=== PATIENT | female | born 1955 | race American Indian/Alaskan Native ===

== ENCOUNTER 2019-07-15 06:03 | Emergency (ER) | payer OTHER ==
--- NOTE | 2019-07-15 07:21 | XRay Report ---
Cervical spine 5 views Indication: neck pain s/p injury at job, stumbled over shoes Findings: There is no fracture, subluxation, or other acute radiographic abnormality of the cervical spine. The re is discogenic degenerative change at C4-5 with mild disc space narrowing and osteophyte formation. Prevertebral soft tissues are unremarkable. Signer Name: César Thompson MD Signed: 07/15/2019 7:17 AM Workstation Name: [id number]
--- NOTE | 2019-07-15 08:36 | Emergency Department Report ---
ED Fall HPI - General Chief Complaint: Neck Pain/Injury Stated Complaint: NECK PAIN Time Seen by Provider: 07/15/19 07:34 Source: patient Mode of arrival: Ambulatory - History of Present Illness Initial Comments: 64-year-old -Citizen Of [place] female patient with history of hypertension presents with complaints of right-sided neck pain x today. Patient states that she had a fall at work on Friday that resulted in injury to her right hip and right arm and shoulder; she denies head trauma or neck pain at the time. Patient states she was evaluated on Friday at [facility] and had x-rays of her shoulder and hip performed-negative for fracture per patient. Patient states she is currently having pain in her right shoulder that radiates into her right neck. She rates her pain as a 8/10 in severity and describes it as a tightness and stiffness. She denies any fever, headache, numbness/tingling/weakness in her limbs, or difficulty with ambulation. She states her pain has improved with ibuprofen 800mg. -: Sudden - Related Data Previous Rx's Medication Instructions Recorded Last Taken Type Methocarbamol [Robaxin] 1,000 mg PO TID PRN #21 tablet 07/15/19 Unknown Rx predniSONE [Deltasone] 10 mg PO TID PRN #9 tab 07/15/19 Unknown Rx Allergies Allergy/AdvReac Type Severity Reaction Status Date / Time No Known Allergies Allergy Unverified 07/15/19 06:12 ED Review of Systems ROS: Stated complaint: NECK PAIN Other details as noted in HPI Constitutional: denies: chills, diaphoresis, fever, malaise, weakness ENT: denies: throat pain Endocrine: denies: excessive sweating Musculoskeletal: arthralgia. denies: joint swelling Skin: denies: rash, lesions Neurological: denies: headache, weakness, numbness, paresthesias, abnormal gait ED Past Medical Hx - Past Medical History Previous Medical History?: Yes Additional medical history: labial cancer, 2010 - Surgical History Past Surgical History?: Yes Additional Surgical History: labial removal, 2010 - Social History Smoking Status: Never Smoker Substance Use Type: None - Medications Home Medications: Home Medications Medication Instructions Recorded Confirmed Last Taken Type Methocarbamol [Robaxin] 1,000 mg PO TID PRN #21 tablet 07/15/19 Unknown Rx predniSONE [Deltasone] 10 mg PO TID PRN #9 tab 07/15/19 Unknown Rx ED Physical Exam - General Limitations: No Limitations General appearance: alert, in no apparent distress - Head Head exam: Present: atraumatic, normocephalic - Eye Eye exam: Present: normal appearance - ENT ENT exam: Present: mucous membranes moist - Neck Neck exam: Present: tenderness (Right trapezius muscle tenderness to palpation, no vertebral tenderness noted), full ROM. Absent: meningismus - Respiratory Respiratory exam: Present: normal lung sounds bilaterally. Absent: respiratory distress - Cardiovascular Cardiovascular Exam: Present: regular rate - Extremities Exam Extremities exam: Present: normal inspection - Expanded Upper Extremity Exam Right Shoulder Exam: Present: full ROM. Absent: tenderness, swelling, abrasion, ecchymosis, deformity Upper Arm exam: Present: normal inspection Neurosensory exam: Present: radial nerve intact, ulnar nerve intact, median nerve intact Vascular: Present: normal capillary refill, radial pulse - Neurological Exam Neurological exam: Present: alert, oriented X3, normal gait. Absent: motor sensory deficit - Expanded Neurological Exam Expanded Motor strength exam: RUE: 5, LUE: 5 - Psychiatric Psychiatric exam: Present: normal affect, normal mood - Skin Skin exam: Present: warm, dry, intact, normal color. Absent: rash ED Course Vital Signs 07/15/19 07:57 Respiratory 18 Rate ED Medical Decision Making - Medical Decision Making Patient here with complaints of right neck/shoulder pain after fall injury on Friday. No vertebral tenderness noted on exam. Patient denies any red flag symptoms or history. Patient has full range of motion of the neck and right shoulder. Symptoms appear to be consistent with trapezius muscle strain. Conservative treatment recommended with icing, muscle relaxers, and prednisone. Patient states she was using ibuprofen 800 every 4 hours, will avoid NSAIDs for now. Recommend follow-up with orthopedics as needed. Strict return precautions were discussed in great detail with patient who verbalizes understanding. Critical care attestation.: If time is entered above; I have spent that time in minutes in the direct care of this critically ill patient, excluding procedure time. ED Disposition Clinical Impression: Neck muscle spasm Disposition: DC-01 TO HOME OR SELFCARE Is pt being admited?: No Condition: Stable Instructions: Cervical Spine Strain (ED), Muscle Spasm (ED) Prescriptions: predniSONE [Deltasone] 10 mg PO TID PRN #9 tab PRN Reason: pain Methocarbamol [Robaxin] 1,000 mg PO TID PRN #21 tablet PRN Reason: Muscle Spasm/tightness Referrals: BIJAL DAVIS MD [Staff Physician] - 3-5 Days Forms: Work/School Release Form(ED)
== END 2019-07-15 08:43 | disposition home or self-care (01) ==
LOC: ED 06:03
DX: M62.838 Other muscle spasm (principal); I10 Essential (primary) hypertension; Z85.44 Personal history of malignant neoplasm of other female genital organs; Z98.890 Other specified postprocedural states; Z79.899 Other long term (current) drug therapy
CPT/HCPCS: 72040

== ENCOUNTER 2020-03-15 10:45 | Emergency (ER) | payer OTHER ==
[2020-03-15 11:07] VITALS: BP 164/88
[2020-03-15 14:34] LABS: Basophils % (Auto) 0.2 % (0.0-1.8); Hematocrit 40.1 % (30.3-42.9); Hemoglobin 13.7 gm/dl (10.1-14.3); Lymphocytes % (Auto) 16.9 % (13.4-35.0); Mean Corpuscular HGB Conc 34 % (30-34); Mean Corpuscular Volume 93 fl (79-97); Monocytes # (Auto) 0.3 K/mm3 (0.0-0.8); Monocytes % (Auto) 4.3 % (0.0-7.3); Platelet Count 230 K/mm3 (140-440); Red Blood Count 4.31 M/mm3 (3.65-5.03); Red Cell Distribution Width 14.3 % (13.2-15.2)
[2020-03-15 14:50] LABS: Alanine Aminotransferase 10 units/L (7-56); Albumin 4.5 g/dL (3.9-5); Blood Urea Nitrogen 13 mg/dL (7-17); Calcium 9.9 mg/dL (8.4-10.2); Hemolysis Index 6
[2020-03-15 14:54] LABS: BUN/Creatinine Ratio 22
[2020-03-15] MEDS ORDERED: POTASSIUM CHLORIDE ER 20 MEQ TAB PO ONE (15:18)
--- NOTE | 2020-03-15 16:00 | Emergency Department Report ---
ED General Adult HPI - General Chief complaint: Abdominal Pain Stated complaint: ABD PAIN Time Seen by Provider: 03/15/20 15:17 Source: patient Mode of arrival: Wheelchair Limitations: No Limitations - History of Present Illness Initial comments: The patient was evaluated in the emergency department for symptoms described in the history of present illness. He/she was evaluated in the context of the global COVID-19 pandemic, which necessitated consideration that the patient might be at risk for infection with the virus that causes COVID-19. Institu tional protocols and algorithms that pertain to the evaluation of patients at risk for COVID-19 are in a state of rapid change based on information released by regulatory bodies including the CDC and federal and state organizations. These policies and algorithms were followed during the patient's care in the emergency department. Please note that these policies, procedures and recommendations changed on a rapid basis. 65-year-old -[place] female presents to the emergency room for int ermittent abdominal pains x3 days. Patient stated that she had vomited this morning about 2 AM while she was drinking water yogurt and cadence tea. Patient states that something is biting in her stomach. Patient reports lying makes it better and getting up walking makes it worse. Patient admits to a decrease in appetite. She reports short of breath with exertion. She admits to sweating and chills but no fever. She reports no taste or smell. She states that she has went back to work after 7 months on Friday and she feels that she may been contracted COVID-19. Patient reports a past medical history of hypertension and labia cancer. Patient had an appointment today with her primary care provider at 2:00 but decided to come here to be evaluated. Onset/Timin -: days(s) Location: abdomen Severity scale (0 -10): 8 Quality: sharp Consistency: intermittent Improves with: rest Worsens with: movement Associated Symptoms: diaphoresis, loss of appetite (Today), nausea/vomiting (2 AM), shortness of breath (With exertion). denies: fever/chills - Related Data Previous Rx's Medication Instructions Recorded Last Taken Type Methocarbamol [Robaxin] 1,000 mg PO TID PRN #21 tablet 07/15/19 Unknown Rx predniSONE [Deltasone] 10 mg PO TID PRN #9 tab 07/15/19 Unknown Rx Nitrofurantoin [place]/M-Cryst 100 mg PO Q12HR 10 Days #20 capsule 03/15/20 Unknown Rx [Macrobid CAP] Allergies Allergy/AdvReac Type Severity Reaction Status Date / Time No Known Allergies Allergy Unverified 07/15/19 06:12 ED Review of Systems ROS: Stated complaint: ABD PAIN Other details as noted in HPI Comment: All other systems reviewed and negative Gastrointestinal: denies: diarrhea, constipation Genitourinary: denies: frequency, hematuria ED Past Medical Hx - Past Medical History Previous Medical History?: Yes Hx Hypertension: Yes Additional medical history: labial cancer, 2010 - Surgical History Past Surgical History?: Yes Additional Surgical History: labial removal, 2010 - Social History Smoking Status: Never Smoker Substance Use Type: None - Medications Home Medications: Home Medications Medication Instructions Recorded Confirmed Last Taken Type Methocarbamol [Robaxin] 1,000 mg PO TID PRN #21 tablet 07/15/19 Unknown Rx predniSONE [Deltasone] 10 mg PO TID PRN #9 tab 07/15/19 Unknown Rx Nitrofurantoin [place]/M-Cryst 100 mg PO Q12HR 10 Days #20 capsule 03/15/20 Un known Rx [Macrobid CAP] ED Physical Exam - General Limitations: No Limitations General appearance: alert, in no apparent distress - Head Head exam: Present: atraumatic, normocephalic - Eye Eye exam: Present: normal appearance - ENT ENT exam: Present: mucous membranes moist - Neck Neck exam: Present: normal inspection - Respiratory Respiratory exam: Present: normal lung sounds bilaterally. Absent: respiratory distress - Cardiovascular Cardiovascular Exam: Present: regular rate, normal rhythm. Absent: systolic murmur, diastolic murmur, rubs, gallop - GI/Abdominal GI/Abdominal exam: Present: soft, normal bowel sounds. Absent: distended, tenderness, guarding, rebound - Extremities Exam Extremities exam: Present: normal inspection, full ROM - Back Exam Back exam: Present: normal inspection, full ROM - Neurological Exam Neurological exam: Present: alert, oriented X3, normal gait - Psychiatric Psychiatric exam: Present: normal affect, normal mood - Skin Skin exam: Present: warm, dry, intact, normal color. Absent: rash ED Course Vital Signs 03/15/20 11:07 Temperature 98.6 F Pulse Rate 77 Respiratory 18 Rate Blood Pressure 164/88 [Right] O2 Sat by Pulse 98 Oximetry ED Medical Decision Making - Lab Data Result diagrams: 03/15/20 13:37 03/15/20 13:37 Laboratory Tests 03/15/20 03/15/20 03/15/20 13:37 13:37 15:58 WBC 6.0 RBC 4.31 Hgb 13.7 Hct 40.1 MCV 93 MCH 32 MCHC 34 RDW 14.3 Plt Count 230 Lymph % (Auto) 16.9 [place] % (Auto) 4.3 Eos % (Auto) 0.0 Baso % (Auto) 0.2 Lymph # (Auto) 1.0 L [place] # (Auto) 0.3 Eos # (Auto) 0.0 Baso # (Auto) 0.0 Seg Neutrophils % 78.6 H Seg Neutrophils # 4.8 Sodium 139 Potassium 3.0 L Chloride 96.9 L Carbon Dioxide 27 Anion Gap 18 BUN 13 Creatinine 0.6 Estimated GFR > 60 BUN/Creatinine Ratio 22 Glucose 117 H Calcium 9.9 Total Bilirubin 0.90 AST 17 ALT 10 Alkaline Phosphatase 79 Total Protein 7.9 Albumin 4.5 Albumin/Globulin Ratio 1.3 Lipase 18 Urine Color Yellow Urine Turbidity Clear Urine pH 5.0 Ur Specific [place] 1.023 Urine Protein 100 mg/dl Urine Glucose (UA) Neg Urine Ketones 80 Urine Blood Neg Urine Nitrite Neg Urine Bilirubin Neg Urine Urobilinogen < 2.0 Ur Leukocyte Esterase Lg Urine WBC (Auto) 13.0 H Urine RBC (Auto) 12.0 U Epithel Cells (Auto) 2.0 Urine Bacteria (Auto) 1+ Urine Mucus 2+ - Medical Decision Making 65-year-old -[place] female presents to the emergency room for inte rmittent abdominal pains x3 days. Patient stated that she had vomited this morning about 2 AM while she was drinking water yogurt and cadence tea. Patient states that something is biting in her stomach. Patient reports lying makes it better and getting up walking makes it worse. Patient admits to a decrease in appetite. She reports short of breath with exertion. She admits to sweating and chills but no fever. She reports no taste or smell. She states that she has went back to work after 7 months on Friday and she feels that she may been contracted COVID-19. Patient reports a past medical history of hypertension and labia cancer. Patient had an appointment today with her primary care provider at 2:00 but decided to come here to be evaluated. Patient's labs are unremarkable patient vital signs are within normal limits. I informed patient that we do not check for Covid that she can follow-up with one of the community resources to get Covid testing. Patient has no labored breat fredo able to speak in complete sentences no coughing. Critical care attestation.: If time is entered above; I have spent that time in minutes in the direct care of this critically ill patient, excluding procedure time. ED Disposition Clinical Impression: UTI (urinary tract infection) Qualifiers: Urinary tract infection type: site unspecified Hematuria presence: without hematuria Qualified Code(s): N39.0 - Urinary tract infection, site not specified Disposition: TO HOME OR SELFCARE Is pt being admited?: No Does the pt Need Aspirin: No Condition: Stable Instructions: Abdominal Pain (ED), Urinary Tract Infection in Women (ED) Additional Instructions: Urinalysis shows that you have a urinary tract infection. I would like for you to complete your antibiotics as prescribed. Tylenol or ibuprofen as needed for pain management. And you need to increase your water intake to about 8 L daily. Prescriptions: Nitrofurantoin [place]/M-Cryst [Macrobid CAP] 100 mg PO Q12HR 10 Days #20 capsule Referrals: PRIMARY CAREMD [Primary Care Provider] - 3-5 Days MARLY JORDAN MD [Referring] - 3-5 Days Forms: Work/School Release Form(ED)
[2020-03-15 16:12] LABS: Bacteria,Urine 1+ /HPF (Negative); Bilirubin,Urine NEG (Negative); Blood,Urine NEG (Negative); Color,Urine Yellow (Yellow); Mucus,Urine 2+ /HPF; Urobilinogen,Urine < 2.0 mg/dL (<2.0)
== END 2020-03-15 17:14 | disposition home or self-care (01) ==
LOC: ED 10:45
DX: N39.0 Urinary tract infection, site not specified (principal); I10 Essential (primary) hypertension; Z98.890 Other specified postprocedural states; Z79.899 Other long term (current) drug therapy
CPT/HCPCS: 36415; 80053; 81001; 83690; 85025; 87086

== ENCOUNTER 2020-03-17 14:47 | Observation (INO) | payer OTHER ==
--- NOTE | 2020-03-17 15:05 | Emergency Department Report ---
ED Chest Pain HPI - General Stated Complaint: CHEST PAIN Time Seen by Provider: 03/17/20 14:57 - History of Present Illness Initial Comments: This is a 65-year-old female presents to the emergency department via EMS from home with complaint of chest pain, palpitations and shortness of breath. Patient says that she began having midsternal chest pain few hours prior to presentation. At that time there were no aggravating or alleviating factors. She was given a sublingual nitroglycerin by EMS and suddenly went unresponsive. The patient is currently awake and alert and said "I thought I just went to sleep." Upon waking or becoming responsive, the patient no longer has any chest pain but still continues to have palpitations and shortness of breath. She denies any fever, nausea, vomiting, back pain. Patient presented very diaphoretic. She has a past medical history of hypertension for which she takes amlodipine and hydrochlorothiazide. She was seen here 2 days ago for a urinary tract infection for which she is currently being treated with nitrofurantoin. She denies any tobacco or illicit drug use. No family history of early cardiac disease or events. No recent travel or sick contacts at home. - Related Data Previous Rx's Medication Instructions Recorded Last Taken Type Methocarbamol [Robaxin] 1,000 mg PO TID PRN #21 tablet 07/15/19 Unknown Rx predniSONE [Deltasone] 10 mg PO TID PRN #9 tab 07/15/19 Unknown Rx Nitrofurantoin [place]/M-Cryst 100 mg PO Q12HR 10 Days #20 capsule 03/15/20 Unknown Rx [Macrobid CAP] Allergies Allergy/AdvReac Type Severity Reaction Status Date / Time No Known Allergies Allergy Unverified 07/15/19 06:12 Heart Score - HEART Score History: Slightly suspicious EKG: Non-specific Age: 45-65 Risk factors: 1-2 risk factors Troponin: < normal limit HEART Score: 3 - Critical Actions Critical Actions: 0-3 pts:0.9-1.7%risk of adverse cardiac event.Candidate for discharge ED Review of Systems ROS: Stated complaint: CHEST PAIN Other details as noted in HPI Comment: All other systems reviewed and negative Constitutional: diaphoresis. denies: fever Eyes: denies: eye pain, vision change ENT: denies: ear pain, throat pain Respiratory: shortness of breath. denies: cough Cardiovascular: chest pain, palpitations. denies: edema Gastrointestinal: denies: abdominal pain, vomiting Genitourinary: denies: dysuria, discharge Musculoskeletal: denies: back pain, arthralgia Skin: denies: rash, lesions Neurological: denies: headache, weakness ED Past Medical Hx - Past Medical History Hx Hypertension: Yes Additional medical history: labial cancer, 2010 - Surgical History Additional Surgical History: labial removal, 2010 - Social History Smoking Status: Never Smoker Substance Use Type: None - Medications Home Medications: Home Medications Medication Instructions Recorded Confirmed Last Taken Type Methocarbamol [Robaxin] 1,000 mg PO TID PRN #21 tablet 07/15/19 Unknown Rx predniSONE [Deltasone] 10 mg PO TID PRN #9 tab 07/15/19 Unknown Rx Nitrofurantoin [place]/M-Cryst 100 mg PO Q12HR 10 Days #20 capsule 03/15/20 Unknown Rx [Macrobid CAP] ED Physical Exam - Other Other exam information: GENERAL: The patient is well-developed well-nourished. HENT: Normocephalic. Atraumatic. Patient has moist mucous membranes. EYES: Extraocular motions are intact. NECK: Supple. Trachea is midline. CHEST/LUNGS: Clear to auscultation. There is no respiratory distress noted. HEART/CARDIOVASCULAR: Regular. There is no tachycardia. ABDOMEN: Abdomen is soft, nontender. Patient has normal bowel sounds. SKIN: Skin is warm. Patient is diaphoretic. NEURO: The patient is awake, alert, and oriented. The patient is cooperative. The patient has no focal neurologic deficits. Normal speech. MUSCULOSKELETAL: There is no tenderness or deformity. There is no limitation range of motion. ED Course Vital Signs 03/17/20 03/17/20 15:03 17:03 Temperature 97.6 F Pulse Rate 76 Respiratory 18 18 Rate Blood Pressure 114/65 Blood Pressure 114/65 [Right] O2 Sat by Pulse 100 100 Oximetry - Reevaluation(s) Reevaluation #1: 03/17/20 17:40 Lab Results 03/17/20 03/17/20 03/17/20 Range/Units 15:35 15:35 15:35 WBC 8.0 (4.5-11.0) K/mm3 RBC 4.40 (3.65-5.03) M/mm3 Hgb 14.0 (10.1-14.3) gm/dl Hct 39.6 (30.3-42.9) % MCV 90 (79-97) fl MCH 32 (28-32) pg MCHC 35 H (30-34) % RDW 13.7 (13.2-15.2) % Plt Count 246 (140-440) K/mm3 Lymph % (Auto) 24.0 (13.4-35.0) % [place] % (Auto) 10.3 H (0.0-7.3) % Eos % (Auto) 0.1 (0.0-4.3) % Baso % (Auto) 0.2 (0.0-1.8) % Lymph # (Auto) 1.9 (1.2-5.4) K/mm3 [place] # (Auto) 0.8 (0.0-0.8) K/mm3 Eos # (Auto) 0.0 (0.0-0.4) K/mm3 Baso # (Auto) 0.0 (0.0-0.1) K/mm3 Seg Neutrophils % 65.4 (40.0-70.0) % Seg Neutrophils # 5.2 (1.8-7.7) K/mm3 D-Dimer 135.00 (0-234) ng/mlDDU Sodium 131 L D (137-145) mmol/L Potassium 2.4 L* (3.6-5.0) mmol/L Chloride 89.8 L (98-107) mmol/L Carbon Dioxide 21 L (22-30) mmol/L Anion Gap 23 mmol/L BUN 14 (7-17) mg/dL Creatinine 0.7 (0.6-1.2) mg/dL Estimated GFR > 60 ml/min BUN/Creatinine Ratio 20 % Glucose 141 H (65-100) mg/dL Calcium 9.6 (8.4-10.2) mg/dL Magnesium (1.7-2.3) mg/dL Total Bilirubin 0.80 (0.1-1.2) mg/dL AST 17 (5-40) units/L ALT 10 (7-56) units/L Alkaline Phosphatase 74 (35-129) units/L Troponin T < 0.010 (0.00-0.029) ng/mL Total Protein 7.4 (6.3-8.2) g/dL Albumin 4.3 (3.9-5) g/dL Albumin/Globulin Ratio 1.4 % TSH (0.270-4.200) mlU/mL 03/17/20 03/17/20 Range/Units 15:35 15:35 WBC (4.5-11.0) K/mm3 RBC (3.65-5.03) M/mm3 Hgb (10.1-14.3) gm/dl Hct (30.3-42.9) % MCV (79-97) fl MCH (28-32) pg MCHC (30-34) % RDW (13.2-15.2) % Plt Count (140-440) K/mm3 Lymph % (Auto) (13.4-35.0) % [place] % (Auto) (0.0-7.3) % Eos % (Auto) (0.0-4.3) % Baso % (Auto) (0.0-1.8) % Lymph # (Auto) (1.2-5.4) K/mm3 [place] # (Auto) (0.0-0.8) K/mm3 Eos # (Auto) (0.0-0.4) K/mm3 Baso # (Auto) (0.0-0.1) K/mm3 Seg Neutrophils % (40.0-70.0) % Seg Neutrophils # (1.8-7.7) K/mm3 D-Dimer (0-234) ng/mlDDU Sodium (137-145) mmol/L Potassium (3.6-5.0) mmol/L Chloride (98-107) mmol/L Carbon Dioxide (22-30) mmol/L Anion Gap mmol/L BUN (7-17) mg/dL Creatinine (0.6-1.2) mg/dL Estimated GFR ml/min BUN/Creatinine Ratio % Glucose (65-100) mg/dL Calcium (8.4-10.2) mg/dL Magnesium 2.10 (1.7-2.3) mg/dL Total Bilirubin (0.1-1.2) mg/dL AST (5-40) units/L ALT (7-56) units/L Alkaline Phosphatase (35-129) units/L Troponin T (0.00-0.029) ng/mL Total Protein (6.3-8.2) g/dL Albumin (3.9-5) g/dL Albumin/Globulin Ratio % TSH 2.620 (0.270-4.200) mlU/mL PATTI score - Patti Score Age > 65: (0) No Aspirin use within the Past 7 Days: (0) No 3 or more CAD Risk Factors: (0) No 2 or more Angina events in past 24 hrs: (1) Yes Known CAD with more than 50% Stenosis: (0) No Elevated Cardiac Markers: (0) No ST Deviation Greater than 0.5mm: (0) No PATTI Score: 1 ED Medical Decision Making - Lab Data Result diagrams: 03/17/20 15:35 03/17/20 15:35 - EKG Data -: EKG Interpreted by Me EKG shows normal: sinus rhythm, axis, intervals (Prolonged QTC), QRS complexes (LVH), ST-T waves Rate: normal - EKG Data When compared to previous EKG there are: previous EKG unavailable Interpretation: other (Sinus rhythm, rate of 78 bpm, normal axis, prolonged QTC, LVH) - Radiology Data Radiology results: image reviewed interpreted by me: Chest x-ray does not show any acute process. There are no pleural effusions, obvious pneumonia and there is no pneumothorax. No significant cardiomegaly. - Medical Decision Making This patient presents to the emergency department with a complaint of chest pain, palpitations and shortness of breath. Patient presents diaphoretic but otherwise is awake, alert, oriented. At the time of my examination the chest pain has resolved with the patient still complains of the palpitations and shortness of breath. EKG does not have any morphology consistent with ST elevation myocardial infarction. Chest x-ray does not show any acute process. Patient's labs shows a significant hypokalemia with a potassium of 2.4. She has been started on both oral and IV potassium replacement. First troponin negative. Negative D-dimer. Patient will be admitted to the hospital for fu rther evaluation and treatment and accepted for admission by the hospitalist, Dr. Leahy. Critical Care Time: Yes Critical care time in (mins) excluding proc time.: 35 Critical care attestation.: If time is entered above; I have spent that time in minutes in the direct care of this critically ill patient, excluding procedure time. Critical care time was spent on this patient in doing her initial evaluation, multiple reevaluations, ordering and interpretation of labs and imaging, IV and p.o. potassium replacement, discussion with the hospitalist service, multiple discussions with the patient. Critical Care Time: 35 minutes ED Disposition Clinical Impression: Acute chest pain, Hypokalemia, Palpitations Disposition: OP ADMIT IP TO THIS HOSP Is pt being admited?: Yes Condition: Serious
[2020-03-17 15:59] LABS: Basophils % (Auto) 0.2 % (0.0-1.8); Eosinophils % (Auto) 0.1 % (0.0-4.3); Hematocrit 39.6 % (30.3-42.9); Lymphocytes # (Auto) 1.9 K/mm3 (1.2-5.4); Mean Corpuscular HGB Conc 35 % (30-34); Mean Corpuscular Volume 90 fl (79-97); Monocytes # (Auto) 0.8 K/mm3 (0.0-0.8); Monocytes % (Auto) 10.3 % (0.0-7.3); Platelet Count 246 K/mm3 (140-440); Red Cell Distribution Width 13.7 % (13.2-15.2)
[2020-03-17 16:18] LABS: Alanine Aminotransferase 10 units/L (7-56); Albumin 4.3 g/dL (3.9-5); Blood Urea Nitrogen 14 mg/dL (7-17); Hemolysis Index 8
[2020-03-17 16:20] LABS: BUN/Creatinine Ratio 20
[2020-03-17 16:27] LABS: Calcium 9.6 mg/dL (8.4-10.2)
[2020-03-17] MEDS ORDERED: POTASSIUM CHLORIDE ER 20 MEQ TAB PO ONE (16:27)
--- NOTE | 2020-03-17 16:51 | XRay Report ---
CHEST 1 VIEW INDICATION / CLINICAL INFORMATION: CP. COMPARISON: None available. FINDINGS: SUPPORT DEVICES: None. HEART / MEDIASTINUM: No significant abnormality. LUNGS / PLEURA: No significant pulmonary or pleural abnormality. No pneumothorax. ADDITIONAL FINDINGS: Irregularity overlying the right fifth and sixth rib laterally is believed to be projectional. IMPRESSION: 1. No acute cardiopulmonary process. 2. Irregularity over the right fifth and sixth rib laterally is felt to be artifact from projection. Correlate clinically to rule out any recent history of trauma on the right side. Signer Name: Sander Huffman MD Signed: 03/17/2020 4:47 PM Workstation Name: [id number]
[2020-03-17] MEDS: POTASSIUM CHLORIDE 10 MEQ 10 MEQ/100 ML BAG IV SCH ×2 (17:35→18:44)
[2020-03-17] MEDS ORDERED: POTASSIUM CHLORIDE 10 MEQ 10 MEQ/100 ML BAG IV ONE (18:10)
--- NOTE | 2020-03-17 21:21 | History and Physical Report ---
History of Present Illness Date of examination: 03/17/20 Date of admission: 03/17/20 17:58 Chief complaint: Chest pain, palpitations and shortness of breath since a.m. History of present illness: 65-year-old -[place]oc[place] female with history of hypertension on hyd rochlorothiazide comes in for chest pain palpitation and shortness of breath since a.m. Midsternal chest pain since a.m. No diaphoresis no radiation of pain. Palpitations present. Exacerbated by exertion and relieved by rest. Patient is on hydrochlorothiazide but does not take any potassium along with that. No orthopnea. No no exertional shortness of breath. No fever or chills. No exposure to coronavirus. Heart Score - HEART Score History: Slightly suspicious EKG: Non-specific Age: 45-65 Risk factors: 1-2 risk factors Troponin: < normal limit HEART Score: 3 - Critical Actions Critical Actions: 0-3 pts:0.9-1.7%risk of adverse cardiac event.Candidate for discharge - Past Medical History Hx Hypertension: Yes Additional medical history: labial cancer, 2010 - Surgical History Additional Surgical History: labial removal, 2010 - Social History Smoking Status: Never Smoker Substance Use Type: None - Medications Home Medications: Home Medications Medication Instructions Recorded Confirmed Last Taken Type Methocarbamol [Robaxin] 1,000 mg PO TID PRN #21 tablet 07/15/19 Unknown Rx predniSONE [Deltasone] 10 mg PO TID PRN #9 tab 07/15/19 Unknown Rx Nitrofurantoin Greene/M-Cryst 100 mg PO Q12HR 10 Days #20 capsule 03/15/20 Unkno wn Rx [Macrobid CAP] Review of Systems ROS: Stated complaint: CHEST PAIN Other details as noted in HPI Comment: All other systems reviewed and negative Constitutional: diaphoresis. denies: fever Eyes: denies: eye pain, vision change ENT: denies: ear pain, throat pain Respiratory: shortness of breath. denies: cough Cardiovascular: chest pain, palpitations. denies: edema Gastrointestinal: denies: abdominal pain, vomiting Genitourinary: denies: dysuria, discharge Musculoskeletal: denies: back pain, arthralgia Skin: denies: rash, lesions Neurological: denies: headache, weakness Medications and Allergies Allergies Allergy/AdvReac Type Severity Reaction Status Date / Time No Known Allergies Allergy Unverified 07/15/19 06:12 Home Medications Medication Instructions Recorded Confirmed Last Taken Type amLODIPine [Norvasc] 10 mg PO DAILY 03/17/20 03/17/20 Unknown History hydroCHLOROthiazide [HCTZ] 25 mg PO QDAY 03/17/20 03/17/20 Unknown History Exam - Constitutional Vitals: Temp Pulse Resp BP Pulse Ox 97.6 F 93 H 20 149/80 99 03/17/20 15:03 03/17/20 20:47 03/17/20 20:47 03/17/20 20:47 03/17/20 20:47 General appearance: Present: no acute distress, well-nourished - EENT Eyes: Present: PERRL ENT: hearing intact, clear oral mucosa - Neck Neck: Present: supple, normal ROM - Respiratory Respiratory effort: normal Respiratory: bilateral: CTA - Cardiovascular Heart rate: 78 Rhythm: regular Heart Sounds: Present: S1 & S2. Absent: rub, click - Extremities Extremities: pulses symmetrical, No edema Peripheral Pulses: within normal limits - Abdominal General gastrointestinal: Present: soft, non-tender, non-distended, normal bowel sounds Female genitourinary: Present: normal - Integumentary Integumentary: Present: clear, warm, dry - Musculoskeletal Musculoskeletal: gait normal, strength equal bilaterally - Psychiatric Psychiatric: appropriate mood/affect, intact judgment & insight - Neurologic Neurologic: CNII-XII intact, moves all extremities - Allied Health Allied health notes reviewed: nursing, case management HEART Score - HEART Score EKG: Non-specific Age: 45-65 Risk factors: 1-2 risk factors Troponin: Troponin T < 0.010 ng/mL (0.00-0.029) 03/17/20 19:24 Troponin: < normal limit - Critical Actions Critical Actions: 0-3 pts:0.9-1.7%risk of adverse cardiac event.Candidate for discharge Results - Labs CBC & Chem 7: 03/17/20 15:35 03/17/20 21:52 Labs: Laboratory Last Values WBC 8.0 K/mm3 (4.5-11.0) 03/17/20 15:35 RBC 4.40 M/mm3 (3.65-5.03) 03/17/20 15:35 Hgb 14.0 gm/dl (10.1-14.3) 03/17/20 15:35 Hct 39.6 % (30.3-42.9) 03/17/20 15:35 MCV 90 fl (79-97) 03/17/20 15:35 MCH 32 pg (28-32) 03/17/20 15:35 MCHC 35 % (30-34) H 03/17/20 15:35 RDW 13.7 % (13.2-15.2) 03/17/20 15:35 Plt Count 246 K/mm3 (140-440) 03/17/20 15:35 Lymph % (Auto) 24.0 % (13.4-35.0) 03/17/20 15:35 Greene % (Auto) 10.3 % (0.0-7.3) H 03/17/20 15:35 Eos % (Auto) 0.1 % (0.0-4.3) 03/17/20 15:35 Baso % (Auto) 0.2 % (0.0-1.8) 03/17/20 15:35 Lymph # (Auto) 1.9 K/mm3 (1.2-5.4) 03/17/20 15:35 Greene # (Auto) 0.8 K/mm3 (0.0-0.8) 03/17/20 15:35 Eos # (Auto) 0.0 K/mm3 (0.0-0.4) 03/17/20 15:35 Baso # (Auto) 0.0 K/mm3 (0.0-0.1) 03/17/20 15:35 Seg Neutrophils % 65.4 % (40.0-70.0) 03/17/20 15:35 Seg Neutrophils # 5.2 K/mm3 (1.8-7.7) 03/17/20 15:35 D-Dimer 135.00 ng/mlDDU (0-234) 03/17/20 15:35 Sodium 131 mmol/L (137-145) L D 03/17/20 15:35 Potassium 2.4 mmol/L (3.6-5.0) L* 03/17/20 15:35 Chloride 89.8 mmol/L (98-107) L 03/17/20 15:35 Carbon Dioxide 21 mmol/L (22-30) L 03/17/20 15:35 Anion Gap 23 mmol/L 03/17/20 15:35 BUN 14 mg/dL (7-17) 03/17/20 15:35 Creatinine 0.7 mg/dL (0.6-1.2) 03/17/20 15:35 Estimated GFR > 60 ml/min 03/17/20 15:35 BUN/Creatinine Ratio 20 % 03/17/20 15:35 Glucose 141 mg/dL (65-100) H 03/17/20 15:35 Calcium 9.6 mg/dL (8.4-10.2) 03/17/20 15:35 Magnesium 2.10 mg/dL (1.7-2.3) 03/17/20 15:35 Total Bilirubin 0.80 mg/dL (0.1-1.2) 03/17/20 15:35 AST 17 units/L (5-40) 03/17/20 15:35 ALT 10 units/L (7-56) 03/17/20 15:35 Alkaline Phosphatase 74 units/L (35-129) 03/17/20 15:35 Troponin T < 0.010 ng/mL (0.00-0.029) 03/17/20 19:24 Total Protein 7.4 g/dL (6.3-8.2) 03/17/20 15:35 Albumin 4.3 g/dL (3.9-5) 03/17/20 15:35 Albumin/Globulin Ratio 1.4 % 03/17/20 15:35 TSH 2.620 mlU/mL (0.270-4.200) 03/17/20 15:35 Short CBC 03/17/20 Range/Units 15:35 WBC 8.0 (4.5-11.0) K/mm3 Hgb 14.0 (10.1-14.3) gm/dl Hct 39.6 (30.3-42.9) % Plt Count 246 (140-440) K/mm3 BMP 03/17/20 03/17/20 15:35 21:52 Sodium 131 L D Potassium 2.4 L* 3.6 D Chloride 89.8 L Carbon Dioxide 21 L BUN 14 Creatinine 0.7 Glucose 141 H Calcium 9.6 Cardiac Enzymes 03/17/20 03/17/20 03/17/20 Range/Units 15:35 19:24 21:52 Troponin T < 0.010 < 0.010 < 0.010 (0.00-0.029) ng/mL 03/17/20 Range/Units 23:43 Troponin T < 0.010 (0.00-0.029) ng/mL Liver Function 03/17/20 Range/Units 15:35 Total Bilirubin 0.80 (0.1-1.2) mg/dL AST 17 (5-40) units/L ALT 10 (7-56) units/L Alkaline Phosphatase 74 (35-129) units/L Albumin 4.3 (3.9-5) g/dL - Imaging and Cardiology EKG: report reviewed (Normal sinus rhythm no acute ST-T wave changes) Chest x-ray: report reviewed (No acute findings) Singh/IV: IV Catheter Type [Left INT / Saline Lock Antecubital] Assessment and Plan Advance Directives: Yes VTE prophylaxis?: Chemical (Full code) Plan of care discussed with patient/family: Yes - Patient Problems (1) Hypokalemia Current Visit: Yes Status: Acute Plan to address problem: Hydrochlorothiazide stopped because patient is having recurrent hypokalemic episodes Patient started on Coreg 6.25 twice daily Patient counseled about no more hydrochlorothiazide in future (2) Acute chest pain Current Visit: Yes Status: Acute Plan to address problem: Chest pain work-up Serial troponins Lexiscan in the morning (3) Palpitations Current Visit: Yes Status: Acute Plan to address problem: Patient started on Coreg 6.25 twice daily (4) Hypertension Current Visit: Yes Status: Chronic Qualifiers: Hypertension type: essential hypertension Qualified Code(s): I10 - Essential (primary) hypertension Plan to address problem: Patient to be discharged on Coreg 6.25 twice daily Hydrochlorothiazide discontinued (5) DVT prophylaxis Current Visit: Yes Status: Acute Plan to address problem: On heparin and GI prophylaxis
[2020-03-17] MEDS ORDERED: HYDROmorphone 1 MG/1 ML INJ IV PRN (21:24)
[2020-03-17] MEDS ORDERED: ONDANSETRON 4 MG/2 ML INJ IV PRN (21:24)
[2020-03-17] MEDS ORDERED: ACETAMINOPHEN 325 MG TAB PO PRN (21:24)
[2020-03-17] MEDS ORDERED: oxyCODONE /ACETAMINOPHEN 5-325MG TAB PO PRN (21:24)
[2020-03-17] MEDS ORDERED: SODIUM CHLORIDE 0.9% 1000 ML 1,000 ML IV SCH (21:45)
[2020-03-17] MEDS ORDERED: POTASSIUM CHLORIDE 10 MEQ 10 MEQ/100 ML BAG IV SCH (22:00)
[2020-03-17] MEDS: FAMOTIDINE 20 MG/2 ML INJ IV SCH (22:30)
[2020-03-17] MEDS: HEPARIN 5,000 UNIT/1 ML VIAL SUB-Q SCH (22:31)
[2020-03-17] MEDS: amLODIPine 10 MG TAB PO SCH (22:31)
[2020-03-18] MEDS ORDERED: REGADENOSON 0.4 MG/5 ML INJ IV ONE ×2 (08:05→08:08)
[2020-03-18 08:10] LABS: Basophils % (Auto) 0.3 % (0.0-1.8); Eosinophils % (Auto) 0.2 % (0.0-4.3); Hemoglobin 12.4 gm/dl (10.1-14.3); Lymphocytes % (Auto) 34.1 % (13.4-35.0); Mean Corpuscular HGB Conc 35 % (30-34); Mean Corpuscular Volume 92 fl (79-97); Monocytes # (Auto) 0.8 K/mm3 (0.0-0.8); Monocytes % (Auto) 13.5 % (0.0-7.3); Platelet Count 208 K/mm3 (140-440); Red Blood Count 3.92 M/mm3 (3.65-5.03); Red Cell Distribution Width 14.1 % (13.2-15.2)
[2020-03-18 08:15] LABS: Alanine Aminotransferase 9 units/L (7-56); Albumin 3.9 g/dL (3.9-5); Blood Urea Nitrogen 10 mg/dL (7-17); Hemolysis Index 4
[2020-03-18 08:31] LABS: BUN/Creatinine Ratio 17
[2020-03-18] MEDS ORDERED: HEPARIN 5,000 UNIT/1 ML VIAL SUB-Q SCH (10:00)
[2020-03-18] MEDS: carvediloL 6.25 MG TAB PO SCH ×2 (11:29→11:30)
[2020-03-18] MEDS: amLODIPine 10 MG TAB PO SCH (11:29)
[2020-03-18] MEDS: FAMOTIDINE 20 MG/2 ML INJ IV SCH (11:30)
[2020-03-18] MEDS: HEPARIN 5,000 UNIT/1 ML VIAL SUB-Q SCH (11:31)
[2020-03-18] MEDS: POTASSIUM CHLORIDE 10 MEQ 10 MEQ/100 ML BAG IV SCH ×4 (12:00→16:12)
--- NOTE | 2020-03-18 12:19 | Treadmill Report ---
THALLIUM STRESS TEST LEFT VENTRICLE: Left ventricular chamber size is within normal spread. Perfusion study demonstrates homogeneous uptake of the tracer in all segments, no significant defects identified. Gated analysis demonstrates normal left ventricular systolic function, ejection fraction 77%. CONCLUSION: Normal myocardial perfusion study. JOB# [id number] CA/NTS
--- NOTE | 2020-03-18 13:09 | Discharge Summary ---
Providers - Providers Date of Admission: 03/17/20 17:58 Date of discharge: 03/18/20 Attending physician: CHARMAINE CANTRELL Primary care physician: MARLY JORDAN Hospitalization Condition: Serious Hospital course: 65-year-old -Finnish female with history of hypertension on hydrochlorothiazide comes in for chest pain palpitation and shortness of breath since a.m. Midsternal chest pain since a.m. No diaphoresis no radiation of pain. Palpitations present. Exacerbated by exertion and relieved by rest. Patient is on hydrochlorothiazide but does not take any potassium along with that. No orthopnea. No no exertional shortness of breath. No fever or chills. No exposure to coronavirus. Here in the ER, patient was found to have low potassium. Her hydroc hlorothiazide has been discontinued. Patient was started on Coreg. Her chest pain subsequently resolved. She was scheduled to have a stress test Her stress test this a.m. showed no reversible ischemia. Patient will be discharged home on current medications. She has been advised to stop hydrochlorothiazide for now. She remains chest pain-free and will be discharged home today Disposition: DC-01 TO HOME OR SELFCARE - Discharge Diagnoses (1) Acute chest pain Status: Acute (2) Hypokalemia Status: Acute Core Measure Documentation - Palliative Care Palliative Care/ Comfort Measures: Not Applicable - Core Measures Any of the following diagnoses?: none Exam - Constitutional Vitals: Temp Pulse Resp BP Pulse Ox 98.0 F 86 19 148/76 98 03/18/20 03:54 03/18/20 11:30 03/18/20 10:00 03/18/20 11:30 03/18/20 10:00 General appearance: Present: no acute distress, well-nourished - EENT Eyes: Present: PERRL ENT: hearing intact, clear oral mucosa - Neck Neck: Present: supple, normal ROM - Respiratory Respiratory effort: normal Respiratory: bilateral: CTA - Cardiovascular Heart Sounds: Present: S1 & S2. Absent: rub, click - Extremities Extremities: pulses symmetrical, No edema Peripheral Pulses: within normal limits - Abdominal General gastrointestinal: Present: soft, non-tender, non-distended, normal bowel sounds Female genitourinary: Present: normal - Integumentary Integumentary: Present: clear, warm, dry - Musculoskeletal Musculoskeletal: gait normal, strength equal bilaterally - Psychiatric Psychiatric: appropriate mood/affect, intact judgment & insight - Neurologic Neurologic: CNII-XII intact, moves all extremities Plan Diet: low salt Additional Instructions: Stop hydrochlorothiazide. Continue Coreg as prescribed. Follow-up with primary medical doctor in 1 to 2 weeks Follow up with: MARLY JORDAN MD [Primary Care Provider] - 3-5 Days Prescriptions: carvediloL [Coreg] 6.25 mg PO BID #60 tablet
[2020-03-18 16:02] VITALS: BP 117/63
== END 2020-03-18 17:49 | disposition home or self-care (01) ==
LOC: ED 14:47 → 4A 17:58
PROVIDERS: ADMIT Internal Medicine; ATTEND Internal Medicine
DX: R07.89 Other chest pain (principal); E87.6 Hypokalemia; I10 Essential (primary) hypertension; R00.2 Palpitations; Z98.890 Other specified postprocedural states; Z79.899 Other long term (current) drug therapy
CPT/HCPCS: 36415; 71045; 78452; 80053; 82962; 83036; 83735; 84132; 84443; 84484; 85025; 85379; 93005; 93017; 96365; 96366; 96372; 96375; 96376; 99291; A9502; G0378; J1644; J3480; J7030; J2785

== ENCOUNTER 2020-03-20 13:32 | Emergency (ER) | payer OTHER ==
--- NOTE | 2020-03-20 13:52 | Emergency Department Report ---
Blank Doc - Documentation Documentation: 65-year-old female that presents with left sided chest pain with radiation to left chest and SOB. This initial assessment/diagnostic orders/clinical plan/treatment(s) is/are subject to change based on patient's health status, clinical progression and re- assessment by fellow clinical providers in the ED. Further treatment and workup at subsequent clinical providers discretion. Patient/guardians urged not to elope from the ED as their condition may be serious if not clinically assessed and managed. Initial orders include: 1- Patient sent to MAIN ED for further evaluation and treatment 2- cardiac workup
[2020-03-20 14:10] VITALS: BP 158/93
[2020-03-20 14:55] LABS: Basophils % (Auto) 0.7 % (0.0-1.8); Eosinophils % (Auto) 0.3 % (0.0-4.3); Hematocrit 35.5 % (30.3-42.9); Hemoglobin 12.4 gm/dl (10.1-14.3); Lymphocytes # (Auto) 1.4 K/mm3 (1.2-5.4); Lymphocytes % (Auto) 25.9 % (13.4-35.0); Mean Corpuscular HGB Conc 35 % (30-34); Mean Corpuscular Volume 92 fl (79-97); Monocytes # (Auto) 0.6 K/mm3 (0.0-0.8); Monocytes % (Auto) 10.9 % (0.0-7.3); Platelet Count 257 K/mm3 (140-440); Red Blood Count 3.88 M/mm3 (3.65-5.03); Red Cell Distribution Width 14.1 % (13.2-15.2)
[2020-03-20 15:04] LABS: INR 0.93 (0.87-1.13)
[2020-03-20 15:05] LABS: Partial Thromboplastin Time 29.4 Sec. (24.2-36.6)
[2020-03-20 15:17] LABS: Alanine Aminotransferase 10 units/L (7-56); Albumin 4.3 g/dL (3.9-5); Blood Urea Nitrogen 8 mg/dL (7-17); Calcium 10.2 mg/dL (8.4-10.2); Hemolysis Index 5
--- NOTE | 2020-03-20 15:23 | XRay Report ---
XR chest routine 2V INDICATION / CLINICAL INFORMATION: Chest Pain COMPARISON: 03/17/2020 FINDINGS: SUPPORT DEVICES: None. HEART / MEDIASTINUM: No significant abnormality. LUNGS / PLEURA: Lungs are clear. Costophrenic sulci are sharp. No pneumothorax. ADDITIONAL FINDINGS: No significant additional findings. IMPRESSION: 1. No acute findings. 2. On the prior examination there was a questionable abnormality of the right fifth and sixth ribs. T here is no significant abnormality identified on this exam. Signer Name: Pacheco Lucia MD Signed: 03/20/2020 3:18 PM Workstation Name: [id number]
[2020-03-20 15:30] LABS: BUN/Creatinine Ratio 11
[2020-03-20] MEDS ORDERED: MORPHINE 4 MG/1 ML INJ IV ONE (16:57)
[2020-03-20] MEDS ORDERED: ONDANSETRON 4 MG/2 ML INJ IV ONE (16:57)
[2020-03-20] MEDS ORDERED: ASPIRIN 81 MG TAB CHEW PO ONE (16:57)
--- NOTE | 2020-03-20 17:18 | Emergency Department Report ---
ED Chest Pain HPI - General Chief Complaint: Chest Pain Stated Complaint: CHEST PAIN Time Seen by Provider: 03/20/20 13:50 Source: patient Mode of arrival: Ambulatory Limitations: No Limitations - History of Present Illness Initial Comments: Patient is 65 years old female with history of hypertension. Patient presented to the ER complaining of left-sided chest pain associated with left upper extremity numbness. Patient stated that chest pain started this morning. Patient also indicated that she is having epigastric abdominal pain with no radiation. Patient denied any shortness of breath, cough, fever or chills. Patient was seen and admitted to the hospital for chest pain rule out and had a stress test done and discharge 2 days ago. Stress test is unremarkable. Patient stated that her chest pain get better a little bit and then he came back again. Patient rated her pain as 8 out of 10. MD Complaint: chest pain -: This morning Onset: during rest Pain Location: left chest Pain Radiation: LUE, abdomen Severity: moderate Severity scale (0 -10): 8 Quality: aching - Related Data Home Medications Medication Instructions Recorded Confirmed Last Taken amLODIPine 10 mg PO DAILY 03/17/20 03/17/20 Unknown Previous Rx's Medication Instructions Recorded Last Taken Type carvediloL [Coreg] 6.25 mg PO BID #60 tablet 03/18/20 Unknown Rx Allergies Allergy/AdvReac Type Severity Reaction Status Date / Time No Known Allergies Allergy Unverified 07/15/19 06:12 Heart Score - HEART Score History: Slightly suspicious EKG: Non-specific Age: 45-65 Risk factors: 1-2 risk factors Troponin: < normal limit HEART Score: 3 - Critical Actions Critical Actions: 0-3 pts:0.9-1.7%risk of adverse cardiac event.Candidate for discharge ED Review of Systems ROS: Stated complaint: CHEST PAIN Other details as noted in HPI Comment: All other systems reviewed and negative Constitutional: denies: chills, fever Respiratory: denies: cough, shortness of breath, SOB with exertion Cardiovascular: chest pain. denies: palpitations Gastrointestinal: abdominal pain. denies: nausea, vomiting, diarrhea, constipation, hematemesis, melena, hematochezia Musculoskeletal: denies: back pain Neurological: denies: headache, weakness, numbness, paresthesias, confusion, abnormal gait ED Past Medical Hx - Past Medical History Previous Medical History?: Yes Hx Hypertension: Yes Additional medical history: labial cancer, 2010 - Surgical History Past Surgical History?: Yes Additional Surgical History: labial removal, 2010 - Social History Smoking Status: Never Smoker Substance Use Type: None - Medications Home Medications: Home Medications Medication Instructions Recorded Confirmed Last Taken Type amLODIPine 10 mg PO DAILY 03/17/20 03/17/20 Unknown History carvediloL [Coreg] 6.25 mg PO BID #60 tablet 03/18/20 Unknown Rx ED Physical Exam - General Limitations: No Limitations General appearance: alert, in no apparent distress - Head Head exam: Present: atraumatic, normocephalic, normal inspection - Eye Eye exam: Present: normal appearance - ENT ENT exam: Present: normal exam, normal orophraynx, mucous membranes moist - Neck Neck exam: Present: normal inspection, full ROM. Absent: tenderness, meningismus, lymphadenopathy, thyromegaly - Respiratory Respiratory exam: Present: normal lung sounds bilaterally - Cardiovascular Cardiovascular Exam: Present: regular rate, normal rhythm, normal heart sounds - GI/Abdominal GI/Abdominal exam: Present: soft, normal bowel sounds. Absent: distended, tenderness, guarding, rebound, rigid, diminished bowel sounds, organomegaly, mass, bruit, pulsatile mass, hernia - Extremities Exam Extremities exam: Present: normal inspection, full ROM, normal capillary refill. Absent: tenderness, pedal edema, joint swelling, calf tenderness - Back Exam Back exam: Present: normal inspection, full ROM. Absent: CVA tenderness (R), CVA tenderness (L) - Neurological Exam Neurological exam: Present: alert, oriented X3, CN II-XII intact, normal gait, reflexes normal. Absent: motor sensory deficit - Psychiatric Psychiatric exam: Present: normal mood - Skin Skin exam: Present: warm, intact, normal color ED Course Vital Signs 03/20/20 03/20/20 03/20/20 13:52 17:30 18:00 Temperature 98.3 F Pulse Rate 79 Respiratory 18 18 18 Rate Blood Pressure 158/93 O2 Sat by Pulse 100 Oximetry PATTI score - Patti Score Age > 65: (0) No Aspirin use within the Past 7 Days: (0) No 3 or more CAD Risk Factors: (0) No 2 or more Angina events in past 24 hrs: (1) Yes Known CAD with more than 50% Stenosis: (0) No Elevated Cardiac Markers: (0) No ST Deviation Greater than 0.5mm: (0) No PATTI Score: 1 ED Medical Decision Making - Lab Data Result diagrams: 03/20/20 14:19 03/20/20 14:19 - EKG Data -: EKG Interpreted by Me EKG shows normal: sinus rhythm - EKG Data Interpretation: no acute changes - Radiology Data Radiology results: report reviewed - Medical Decision Making Patient is 65 years old female with history of hypertension. Patient presented to the ER complaining of left-sided chest pain associated with left upper extremity numbness. Patient stated that chest pain started this morning. Patient also indicated that she is having epigastric abdominal pain with no radiation. Patient denied any shortness of breath, cough, fever or chills. Patient was seen and admitted to the hospital for chest pain rule out and had a stress test done and discharge 2 days ago. Stress test is unremarkable. Patient stated that her chest pain get better a little bit and then he came back again. Patient rated her pain as 8 out of 10. EKG showed no ST elevation. Chest x-ray is unremarkable. Labs reviewed and is unremarkable including negative troponin x2. During all this time patient is pointing to her epigastric area indicating that this is where the pain is. Patient given Protonix, lidocaine and Mylanta. Patient stated that her symptoms is completely resolved and she is feeling much better. Patient denied any chest pain or abdominal pain. CT abdomen and pelvis showed a duodenal ulcer. Patient given prescription for Nexium, sucralfate and advised to follow-up with [facility] for further management. Patient advised to return to the ER if she develop any new symptoms. Critical care attestation.: If time is entered above; I have spent that time in minutes in the direct care of this critically ill patient, excluding procedure time. ED Disposition Clinical Impression: Acute chest pain, Abdominal pain, Duodenal ulcer Disposition: - TO HOME OR SELFCARE Is pt being admited?: No Condition: Stable Instructions: Chest Pain (ED), Peptic Ulcer (ED) Referrals: MARLY JORDAN MD [Primary Care Provider] - 3-5 Days [facility] [Provider Group] - 3-5 Days
--- NOTE | 2020-03-20 17:42 | Cat Scan Report ---
CT abdomen pelvis w con INDICATION: Right-sided abdominal pain for 3 days. TECHNIQUE: All CT scans at this location are performed using the following dose modulation technique: Automated exposure control. Helical slices were obtained through the abdomen and pelvis following the administr ation 100 cc of Omnipaque 300 COMPARISON: None available. FINDINGS: Abdomen: No acute abnormality is seen in the lower chest. The liver, spleen, pancreas, adrenal glands , and kidneys show no acute abnormality.. There is a subcentimeter hypodensity in the mid right kidne y which is too small to characterize but likely represents a cyst. The appendix is unremarkable. Ther e is focal fatty infiltration of liver adjacent to falciform ligament. There is an ulcer in the duodenal bulb, series 601 image 36 and series 2 image 57. There is mild stra nding in the perigastric fat. There is no collections. There is no free air. Pelvis: There is no obstruction or inflammation. There are no abnormal fluid collections. Review of bone windows, no acute osseous abnormalities are seen. IMPRESSION: 1. There is an ulcer in the duodenal bulb. There is no free air. There are no abnormal fluid collecti ons. Signer Name: César Thompson MD Signed: 03/20/2020 5:37 PM Workstation Name: [id number]
[2020-03-20] MEDS ORDERED: PANTOPRAZOLE 40 MG INJ IV ONE (18:16)
[2020-03-20] MEDS ORDERED: LIDOCAINE VISCOUS 2% 15 ML ORAL LIQD PO ONE (18:16)
[2020-03-20] MEDS ORDERED: ALUM-MAG HYDROXIDE-SIMETHICONE 200-200-20MG/5ML ORAL LIQD 30 ML PO ONE (18:16)
[2020-03-20 18:17] LABS: Bilirubin,Urine NEG (Negative); Blood,Urine NEG (Negative); Color,Urine Yellow (Yellow); Mucus,Urine FEW /HPF; Protein,Urine <15 mg/dL mg/dL (Negative); Urobilinogen,Urine < 2.0 mg/dL (<2.0)
[2020-03-20 18:35] LABS: Alanine Aminotransferase 10 units/L (7-56); Albumin 4.4 g/dL (3.9-5)
[2020-03-20 18:36] LABS: Bilirubin,Direct < 0.2 mg/dL (0-0.2)
[2020-03-20] MEDS ORDERED: SODIUM CHLORIDE 0.9% 1000 ML 1,000 ML IV ONE (19:00)
[2020-03-20] MEDS ORDERED: cefTRIAXone/NS 1 GM/50 ML 1 GM/50 ML BAG IV ONE (19:00)
== END 2020-03-20 21:18 | disposition home or self-care (01) ==
LOC: ED 13:32
DX: K26.9 Duodenal ulcer, unspecified as acute or chronic, without hemorrhage or perforation (principal); R10.13 Epigastric pain; R07.9 Chest pain, unspecified; I10 Essential (primary) hypertension; Z79.899 Other long term (current) drug therapy; Z98.890 Other specified postprocedural states
CPT/HCPCS: 36415; 71046; 74177; 80053; 80076; 81001; 83690; 84484; 85025; 85610; 85730; 87086; 93005; 96365; 96375; 99285; C9113; J0696; J2270; J2405; J7030; Q9967

== ENCOUNTER 2021-07-26 09:31 | Emergency (ER) | payer SELFPAY ==
[2021-07-26] MEDS ORDERED: ASPIRIN 81 MG TAB CHEW PO ONE (09:43)
--- NOTE | 2021-07-26 09:45 | Event Note ---
ED Screening Note ED Screening Note: l side cp same as when she had her IA in 2018 also l side pain like with her ulcer home med bp med- not taken today no asa/plavix no ppi pmh gerd/ulcer htn mi psh denies no c/e/d mom dec hf dad dec old age cards- does not follow has pcp This initial assessment/diagnostic orders/clinical plan/treatment(s) is/are subject to change based on patients health status, clinical progression and re- assessment by fellow clinical providers in the ED. Further treatment and workup at subsequent clinical providers discretion. Patient/guardian urged not to elope from the ED as their condition may be serious if not clinically assessed and managed. Initial orders include: ro acs/perf ucler Vital Signs 07/26/21 09:43 Temperature 98.4 F Pulse Rate 111 H Respiratory 20 Rate Blood Pressure 153/100 [Right] O2 Sat by Pulse 100 Oximetry
--- NOTE | 2021-07-26 10:17 | XRay Report ---
CHEST 2 VIEWS INDICATION: chest pain. COMPARISON: 03/20/2020 FINDINGS: Support devices: None. Heart: Within normal limits. Lungs/pleura: No acute air space or interstitial disease. No pneumothorax. Additional findings: None. IMPRESSION: No acute findings. Signer Name: Davidson Payan Jr, MD Signed: 07/26/2021 10:13 AM Workstation Name: [id number]
--- NOTE | 2021-07-26 10:51 | Emergency Department Report ---
ED Abdominal Pain HPI - General Chief Complaint: Chest Pain Stated Complaint: CHEST PAINS Time Seen by Provider: 07/26/21 09:45 Source: patient Mode of arrival: Ambulatory Limitations: No Limitations - History of Present Illness Initial Comments: Patient is 66 years old female with history of hypertension and duodenal ulcer. Patient presented to the ER complaining of 3-day history of epigastric abdominal pain that radiated to her left chest and left upper quadrant area. Patient described her pain as fullness. She rated her pain currently as 2 out of 10 but when it hit initially it was 8 out of 10. Patient denied any shortness of breath. No fever or chills or cough. No nausea or vomiting. MD Complaint: abdominal pain -: days(s) (3) Location: epigastric Radiation: LUQ, back, chest Severity: moderate Severity scale (0 -10): 8 Quality: fullness Consistency: intermittent Associated Symptoms: denies other symptoms - Related Data Home Medications Medication Instructions Recorded Confirmed Last Taken amLODIPine 10 mg PO DAILY 03/17/20 03/17/20 Unknown Previous Rx's Medication Instructions Recorded Last Taken Type carvediloL [Coreg] 6.25 mg PO BID #60 tablet 03/18/20 Unknown Rx Esomeprazole Magnesium [NexIUM] 40 mg PO QDAY #30 capsule.dr 03/20/20 Unknown Rx Sucralfate [Carafate] 1 gm PO ACHS #120 tablet 03/20/20 Unknown Rx Allergies Allergy/AdvReac Type Severity Reaction Status Date / Time No Known Allergies Allergy Unverified 07/15/19 06:12 ED Review of Systems ROS: Stated complaint: CHEST PAINS Other details as noted in HPI Comment: All other systems reviewed and negative Constitutional: denies: chills, fever Respiratory: denies: cough, shortness of breath, SOB with exertion Cardiovascular: chest pain. denies: palpitations, dyspnea on exertion Gastrointestinal: abdominal pain. denies: nausea, vomiting, diarrhea, co nstipation, hematemesis, hematochezia Musculoskeletal: denies: back pain Neurological: denies: headache, weakness, numbness, paresthesias, confusion ED Past Medical Hx - Past Medical History Hx Hypertension: Yes Additional medical history: labial cancer, 2010 [place]/ STOMACH PAIN - Surgical History Additional Surgical History: labial removal, 2010 - Social History Smoking Status: Never Smoker Substance Use Type: None - Medications Home Medications: Home Medications Medication Instructions Recorded Confirmed Last Taken Type amLODIPine 10 mg PO DAILY 03/17/20 03/17/20 Unknown History carvediloL [Coreg] 6.25 mg PO BID #60 tablet 03/18/20 Unknown Rx Esomeprazole Magnesium [NexIUM] 40 mg PO QDAY #30 capsule. 03/20/20 Unknown Rx Sucralfate [Carafate] 1 gm PO ACHS #120 tablet 03/20/20 Unknown Rx ED Physical Exam - General Limitations: No Limitations General appearance: alert, in no apparent distress - Head Head exam: Present: atraumatic, normocephalic, normal inspection - Eye Eye exam: Present: normal appearance - ENT ENT exam: Present: normal exam, normal orophraynx, mucous membranes moist - Neck Neck exam: Present: normal inspection, full ROM. Absent: tenderness, meningismus - Respiratory Respiratory exam: Present: normal lung sounds bilaterally - Cardiovascular Cardiovascular Exam: Present: regular rate, normal rhythm, normal heart sounds - GI/Abdominal GI/Abdominal exam: Present: soft, normal bowel sounds. Absent: distended, tenderness, guarding, rebound, rigid, organomegaly, mass, bruit, pulsatile mass, hernia - Extremities Exam Extremities exam: Present: normal inspection, full ROM, normal capillary refill. Absent: tenderness, pedal edema, joint swelling, calf tenderness - Back Exam Back exam: Present: normal inspection, full ROM. Absent: CVA tenderness (R), CVA tenderness (L) - Neurological Exam Neurological exam: Present: alert, oriented X3, CN II-XII intact, normal gait, reflexes normal. Absent: motor sensory deficit - Psychiatric Psychiatric exam: Present: normal mood - Skin Skin exam: Present: warm, intact, normal color ED Course Vital Signs 07/26/21 07/26/21 07/26/21 09:43 11:44 11:45 Temperature 98.4 F Pulse Rate 111 H Respiratory 20 Rate Blood Pressure 154/77 Blood Pressure 153/100 [Right] O2 Sat by Pulse 100 96 100 Oximetry 07/26/21 07/26/21 12:01 12:15 Temperature Pulse Rate 75 76 Respiratory 15 17 Rate Blood Pressure 164/87 164/87 Blood Pressure [Right] O2 Sat by Pulse 100 99 Oximetry ED Medical Decision Making - Lab Data Result diagrams: 07/26/21 10:23 07/26/21 10:23 - EKG Data -: EKG Interpreted by Me EKG shows normal: sinus rhythm Rate: normal - EKG Data Interpretation: no acute changes - Radiology Data Radiology results: report reviewed - Medical Decision Making Patient is 66 years old female with history of hypertension and duodenal ulcer. Patient presented to the ER complaining of 3-day history of epigastric abdominal pain that radiated to her left chest and left upper quadrant area. Patient described her pain as fullness. She rated her pain currently as 2 out of 10 but when it hit initially it was 8 out of 10. Patient denied any shortness of breath. No fever or chills or cough. No nausea or vomiting. EKG showed no ST elevation. Labs reviewed and is unremarkable including a negative troponin x2. Chest x-ray is negative. Patient chest pain is 0. Patient chest pain is atypical however given patient risk factors I strongly advised patient to follow-up with her primary care physician for outpatient cardiac work-up and to return to the ER if she develop any new symptoms. Critical care attestation.: If time is entered above; I have spent that time in minutes in the direct care of this critically ill patient, excluding procedure time. ED Disposition Clinical Impression: Acute chest pain Disposition: HOME / SELF CARE / HOMELESS Is pt being admited?: No Condition: Stable Instructions: Chest Pain (ED), Nonspecific Chest Pain, Adult Referrals: PRIMARY CARE, [Referring] - 3-5 Days
[2021-07-26 10:59] LABS: Alanine Aminotransferase 9 units/L (7-56); Albumin 4.5 g/dL (3.9-5); Blood Urea Nitrogen 11 mg/dL (7-17); Calcium 10.5 mg/dL (8.4-10.2); Hemolysis Index 8
[2021-07-26 11:04] LABS: BUN/Creatinine Ratio 16
[2021-07-26 11:08] LABS: Basophils % (Auto) 0.5 % (0.0-1.8); Eosinophils % (Auto) 1.1 % (0.0-4.3); Hematocrit 41.3 % (30.3-42.9); Hemoglobin 13.4 gm/dl (10.1-14.3); Lymphocytes # (Auto) 1.6 K/mm3 (1.2-5.4); Lymphocytes % (Auto) 42.6 % (13.4-35.0); Mean Corpuscular HGB Conc 32 % (30-34); Mean Corpuscular Volume 94 fl (79-97); Monocytes # (Auto) 0.4 K/mm3 (0.0-0.8); Platelet Count 213 K/mm3 (140-440); Red Blood Count 4.41 M/mm3 (3.65-5.03); Red Cell Distribution Width 14.4 % (13.2-15.2)
--- NOTE | 2021-07-26 13:32 | Electrocardiograph Report ---
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
[2021-07-26 14:43] VITALS: BP 176/94
== END 2021-07-26 15:04 | disposition home or self-care (01) ==
LOC: ED 09:31
DX: R07.9 Chest pain, unspecified (principal); I10 Essential (primary) hypertension
CPT/HCPCS: 36415; 71046; 80053; 84484; 85025; 93005; 93010; 99284

== ENCOUNTER 2021-08-14 12:21 | Emergency (ER) | payer SELFPAY ==
[2021-08-14 12:30] VITALS: BP 192/96
[2021-08-14] MEDS ORDERED: ALUM-MAG HYDROXIDE-SIMETHICONE 200-200-20MG/5ML ORAL LIQD 30 ML PO ONE (17:39)
[2021-08-14 18:05] LABS: Basophils % (Auto) 0.6 % (0.0-1.8); Eosinophils % (Auto) 0.3 % (0.0-4.3); Hematocrit 40.9 % (30.3-42.9); Hemoglobin 13.7 gm/dl (10.1-14.3); Lymphocytes # (Auto) 1.3 K/mm3 (1.2-5.4); Lymphocytes % (Auto) 31.2 % (13.4-35.0); Mean Corpuscular HGB Conc 34 % (30-34); Mean Corpuscular Volume 93 fl (79-97); Monocytes # (Auto) 0.4 K/mm3 (0.0-0.8); Monocytes % (Auto) 10.1 % (0.0-7.3); Platelet Count 217 K/mm3 (140-440); Red Blood Count 4.41 M/mm3 (3.65-5.03); Red Cell Distribution Width 14.4 % (13.2-15.2)
[2021-08-14 18:23] LABS: Alanine Aminotransferase 9 units/L (7-56); Albumin 4.8 g/dL (3.9-5); Blood Urea Nitrogen 12 mg/dL (7-17); Calcium 9.8 mg/dL (8.4-10.2); Hemolysis Index 3
[2021-08-14 18:24] LABS: BUN/Creatinine Ratio 20
--- NOTE | 2021-08-14 18:29 | XRay Report ---
CHEST 2 VIEWS INDICATION / CLINICAL INFORMATION: Chest Pain. COMPARISON: 07/26/2021 FINDINGS: SUPPORT DEVICES: None. HEART / MEDIASTINUM: No significant abnormality. LUNGS / PLEURA: No significant pulmonary or pleural abnormality. No pneumothorax. ADDITIONAL FINDINGS: No significant additional findings. IMPRESSION: 1. No acute findings. Signer Name: Nahum Herrera DO Signed: 08/14/2021 6:25 PM Workstation Name: [id number]
--- NOTE | 2021-08-14 20:15 | Emergency Department Report ---
ED General Adult HPI - General Chief complaint: Chest Pain Stated complaint: CHEST PAIN/STOMACH Time Seen by Provider: 08/14/21 17:37 Source: patient Mode of arrival: Ambulatory Limitations: No Limitations - History of Present Illness Initial comments: PT PRESENTS TO ED WITH COMPLAINT OF CHEST PAIN -: Gradual, days(s) Location: abdomen Severity scale (0 -10): 3 Quality: burning Worsens with: none - Related Data Home Medications Medication Instructions Recorded Confirmed Last Taken amLODIPine 10 mg PO DAILY 03/17/20 03/17/20 Unknown Previous Rx's Medication Instructions Recorded Last Taken Type carvediloL [Coreg] 6.25 mg PO BID #60 tablet 03/18/20 Unknown Rx Esomeprazole Magnesium [NexIUM] 40 mg PO QDAY #30 capsule.dr 03/20/20 Unknown Rx Sucralfate [Carafate] 1 gm PO ACHS #120 tablet 03/20/20 Unknown Rx Simethicone [Bicarsim Forte] 125 mg PO Q6HR #30 tab 07/26/21 Unknown Rx Allergies Allergy/AdvReac Type Severity Reaction Status Date / Time No Known Allergies Allergy Unverified 07/15/19 06:12 ED Review of Systems ROS: Stated complaint: CHEST PAIN/STOMACH Other details as noted in HPI Constitutional: denies: chills, fever Eyes: denies: eye pain, eye discharge, vision change ENT: denies: ear pain, throat pain Respiratory: denies: cough, shortness of breath, wheezing Cardiovascular: denies: chest pain, palpitations Endocrine: no symptoms reported Gastrointestinal: denies: abdominal pain, nausea, diarrhea Genitourinary: denies: urgency, dysuria, discharge Musculoskeletal: denies: back pain, joint swelling, arthralgia Skin: denies: rash, lesions Neurological: denies: headache, weakness, paresthesias Psychiatric: denies: anxiety, depression Hematological/Lymphatic: denies: easy bleeding, easy bruising ED Past Medical Hx - Past Medical History Hx Hypertension: Yes Hx CVA: No Hx Heart Attack/AMI: No Additional medical history: labial cancer, 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 03/20/20 Unknown Rx Sucralfate [Carafate] 1 gm PO ACHS #120 tablet 03/20/20 Unknown Rx Simethicone [Bicarsim Forte] 125 mg PO Q6HR #30 tab 07/26/21 Unknown Rx ED Physical Exam - General Limitations: No Limitations General appearance: alert, in no apparent distress - Head Head exam: Present: atraumatic, normocephalic - Eye Eye exam: Present: normal appearance - ENT ENT exam: Present: mucous membranes moist - Neck Neck exam: Present: normal inspection - Respiratory Respiratory exam: Present: normal lung sounds bilaterally. Absent: respiratory distress - Cardiovascular Cardiovascular Exam: Present: regular rate, normal rhythm. Absent: systolic murmur, diastolic murmur, rubs, gallop - GI/Abdominal GI/Abdominal exam: Present: soft, normal bowel sounds - Extremities Exam Extremities exam: Present: normal inspection - Back Exam Back exam: Present: normal inspection - Neurological Exam Neurological exam: Present: alert, oriented X3 - Psychiatric Psychiatric exam: Present: normal affect, normal mood - Skin Skin exam: Present: warm, dry, intact, normal color. Absent: rash ED Course Vital Signs 08/14/21 12:27 Temperature 98 F Pulse Rate 98 H Respiratory 16 Rate Blood Pressure 192/96 [Left] O2 Sat by Pulse 98 Oximetry ED Medical Decision Making - Lab Data Result diagrams: 08/14/21 17:46 08/14/21 17:46 Critical care attestation.: If time is entered above; I have spent that time in minutes in the direct care of this critically ill patient, excluding procedure time. ED Disposition Clinical Impression: Gastritis Disposition: 01 HOME / SELF CARE / HOMELESS Is pt being admited?: No Does the pt Need Aspirin: No Condition: Stable Referrals: JIMMY GALLEGO MD [Primary Care Provider] - 3-5 Days
--- NOTE | 2021-08-16 11:20 | Electrocardiograph Report ---
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
== END 2021-08-14 20:21 | disposition home or self-care (01) ==
LOC: ED 12:21
DX: K29.70 Gastritis, unspecified, without bleeding (principal); I10 Essential (primary) hypertension
CPT/HCPCS: 36415; 71046; 80053; 83690; 84484; 85025; 93005; 99284